=== PATIENT | male | born 1960 | race Caucasian/White ===

== ENCOUNTER → 2020-12-17 11:39 | Outpatient (CLI) | payer OTHER, SELFPAY ==
[2020-12-17 13:34] LABS: COVID19 -Nasal RAPID Negative (Negative)
== END ==
PROVIDERS: Referring Provider Nurse Practitioner Family; Visit Provider Nurse Practitioner Family
DX: Z20.822 Contact with and (suspected) exposure to COVID-19 (principal); Z01.812 Encounter for preprocedural laboratory examination
CPT/HCPCS: 87635

== ENCOUNTER 2020-12-19 13:35 | Day surgery (SDC) | payer OTHER, SELFPAY ==
[2020-12-17 12:15] VITALS: BMI 28.7
--- NOTE | 2020-12-19 | DI.RAD.S_ITS ---
PROCEDURE: XR LUMBAR SPINE 2-3V INDICATIONS: L5-S1 MICRODISCECTOMY TECHNIQUE: 2 views of the lumbar spine were acquired. COMPARISON: None. FINDINGS: 2 intraoperative fluoroscopy images demonstrate a surgical port posterior to L5-S1. IMPRESSION: Surgical port at the level of L5-S1. Dictated by: Chantell Govea M.D. on 12/19/2020 at 17:34 Approved by: Chantell Govea M.D. on 12/19/2020 at 17:38
[2020-12-19 14:01] VITALS: BP 143/88; PULSE 77; RESP 16; TEMP 36.3; O2SAT 95; BMI 28.7
[2020-12-19] MEDS: ACETAMINOPHEN 325 MG TABLET 975 MG PO (14:17)
[2020-12-19] MEDS: GABAPENTIN 300 MG CAPSULE PO (14:17)
[2020-12-19] MEDS: LACTATED RINGERS 1,000 ML 42 ML IV (14:18)
--- NOTE | 2020-12-19 15:26 | PM.PREOP ---
Pre-operative Note COVID-19 COVID-19 status: Negative Result date/Date tested (Pos, Neg/Pending): 12/17/20 Interval Note History & Physical reviewed/Exam performed by Physician: Yes Changes to H&P: No
--- NOTE | 2020-12-19 15:39 | PM.HP.1 ---
History of Present Illness History of Present Illness Date Patient Seen: 12/19/20 Time Patient Seen: 15:40 Date of Onset of Symptoms: 07/03/20 Chief complaint: LUMBAR DISCECTOMY Narrative: Mr. Varghese is a 60 yo M with 3 months hx of worsening right leg pain, numbnbess and weakness. He has difficulty performing activity of daily living while failed conservative care for over 6 weeks. After discussing risks and benefits for surgery, patient elected to proceed with L5-S1 right microdiscectomy surgery. Patient History Medical History Herniated disc Perforated ulcer Surgical History History of appendectomy Hx of tonsillectomy Family & Social History Social History: household members spouse Tobacco & Substance use: Tobacco type cigarettes Smoking Status Current every day smoker alcohol intake never Substance Use Type marijuana Meds Home Medications and Allergies Home Medications Medication Instructions Recorded Confirmed Type Tylenol Extra Strength 650 mg 12/19/20 History atorvastatin 10 mg DAILY 12/19/20 12/19/20 History losartan 12.5 mg 12/19/20 History omeprazole 20 mg 12/19/20 History oxycodone 5 mg tablet 5 mg PO Q4H PRN #30 tab 12/19/20 Rx Allergies Allergy/AdvReac Type Severity Reaction Status Date / Time No Known Allergies Allergy Verified 12/19/20 13:52 Review of Systems Review of Systems ROS: Yes All systems reviewed with the patient and are negative except as otherwise documented Exam Vital Signs (past 8 hours): - 12/19/20 14:01 Temperature 97.3 F L Pulse Rate 77 Respiratory Rate 16 Blood Pressure 143/88 H Pulse Oximetry 95 Oxygen Delivery Method Room Air Neuro Other: Right LE with + straight leg raise, sensibility decreased to R S1 dermatome, motor strength 4/5 in R gastroc. Assessment & Plan Assessment & Plan narrative: Mr. Varghese has large L5-S1 disc herniation with severe right leg radiculopathy failing conservative care. Risks for surgery include but not limited to bleeding, infection, nerve/dura injury, need for additional procedure, even . Patient understands and would like to proceed with surgery. I scheduled him for L5-S1 right microdiscectomy. Time Spent With Patient Critical Care time: I spent a total of [] minutes of critical care time on this patient's care today; this time is exclusive of procedural time.
[2020-12-19] MEDS: CEFAZOLIN 1 GM VIAL 2 GM IV (15:59)
--- NOTE | 2020-12-19 16:18 | SUR.OPER ---
Prone on spine table, head in foam head support, padded chest and pelvic supports, gel pad at knees, lower legs supported by pillows; nipples, genitalia and toes free of pressure, arms secured on foam padded arm boards at <90 degrees abduction. Tape over blanket at thigh secured to table. Gel pad placed between heels.
[2020-12-19] MEDS: BUPIVACAINE 0.25% (PF) 30 ML, EPINEPHrine 0.3 MG INJ (16:29)
[2020-12-19] MEDS: methylPREDNISolone 125 MG/2 ML VIAL 40 MG INJ (16:30)
--- NOTE | 2020-12-19 17:13 | P.OP_ITS ---
Operative Date/Time/Diagnoses Date of procedure: 12/19/20 Time of procedure: 16:00 Pre-op diagnosis: 1. L5-S1 disc herniation 2. Lumbar radiculopathy Post-op diagnosis: same Procedure & Clinicians Procedure: 1. L5-S1 right microdiscectomy 2. Utilization of microsurgical technique and operating microscope Same procedure as scheduled: Yes Indications: Patient has been having chronic back pain and worsening lumbar radiculopathy. Patient failed multiple conservative management with worsening pain weakness and numbness in her lower extremity. Patient has been having difficulty performing activity of daily living. After discussing risks benefits of treatment options, patient elected proceed with surgery. Surgeon: Chris Cortez Technical Instructor Course Developer: Jenny Willard Click Yes if Unassisted: No Anesthesia Type: General Operative Notes Closure Type: primary Specimen(s): none sent Estimated Blood Loss (mL): 5 Blood products transfused: none Procedure in detail: Patient was seen in the preoperative area. Risks and benefits of the surgery was discussed with the patient. Informed consent was obtained from the patient and placed in the chart. Surgical site was marked. Patient was taken to the operative room. General anesthesia was administered. Prophylactic antibiotic was given to the patient less than 30 min before the incision was made. Patient was placed into a prone position on the Dg table. Patient's back was then prepped and draped in the sterile fashion. Time- out was performed at this time. Using AP and lateral C-arm imaging the interval between L5-S1 was identified and marked on patient's back. A 1 inch incision 1 in from midline was made on the right side. The fascia was incised in line with skin incision. Globus MARS retractors was placed inside the incision and docked onto the L5 lamina. Using microsurgical technique and operating microscope, a L5 laminotomy was performed using a Kerrison rongeur. Liagamentum flavum was resected at the site of the laminotomy. The disc space at L5-S1 was identified. Microdiscectomy was performed by incising the annulus with #11 blade. Microcurettes and pituitary was used to removed herniated disc fragments of disc from the epidural space. After the microdiskectomy was completed, the area medial lateral superior and inferior to the area of the microdiskectomy was inspected and explored using a micro curette. No other impinging structure was identified. The wound was then irrigated with sterile normal saline. 40 mg Depo-Medrol was placed into the epidural space. The deep fascia was closed with 1-0 Vicryl. The subcutaneous tissue was closed with 2-0 Vicryl. The skin was closed with 2-0 nylon. Patient tolerated the procedure well. There were no complications. Patient was transferred recovery room in stable condition. Complications: none Post-operative Condition: stable Disposition: PACU Plan for aftercare: Discharge to home
[2020-12-19 17:15] VITALS: BP 149/89; PULSE 101; RESP 14; TEMP 36.7; O2SAT 96
[2020-12-19 17:20] VITALS: BP 143/93; PULSE 100; RESP 14; O2SAT 96
[2020-12-19 17:25] VITALS: BP 138/92; PULSE 95; RESP 14; O2SAT 96
[2020-12-19 17:31] VITALS: BP 128/78; PULSE 97; RESP 14; TEMP 36.7; O2SAT 97
[2020-12-19 17:54] VITALS: BP 128/80; PULSE 97; RESP 16; TEMP 36.8; O2SAT 97
== END 2020-12-19 17:56 | disposition home or self-care (01) ==
PROVIDERS: PCP Family Medicine; Referring Provider Orthopaedic Surgery Orthopaedic Surgery of the Spine; Visit Provider Orthopaedic Surgery Orthopaedic Surgery of the Spine
PROC: (CPT 63030; principal; 2020-12-19 15:15)
DX: M51.16 Intervertebral disc disorders with radiculopathy, lumbar region (principal); I10 Essential (primary) hypertension; K21.9 Gastro-esophageal reflux disease without esophagitis; F17.210 Nicotine dependence, cigarettes, uncomplicated
CPT/HCPCS: 63030; 72100; 76000; 82962; J0171; J0330; J0690; J1100; J2704; J2930; J3010